=== PATIENT | female | born 1955 | race Asian ===

== ENCOUNTER 2016-08-07 05:26 | Inpatient (IN) | payer BC ==
[~2016-08-07] VITALS: Ht 144.8 cm; Wt 63.8 kg
[2016-08-07] MEDS ORDERED: HYDR25TA6 PO (05:38)
[2016-08-07] MEDS ORDERED: SIMV40TA3 PO (05:38)
[2016-08-07] MEDS ORDERED: PANTOPRAZOLE 80 MG in SODIUM CHLORIDE 0.9% 100 ML IV SCH ×2 (06:08→08:00)
[2016-08-07] MEDS ORDERED: PANTOPRAZOLE 80 MG in SODIUM CHLORIDE 0.9% 50 ML IVPB ONE (06:08)
[2016-08-07] MEDS ORDERED: PANTOPRAZOLE 40 MG IV IVPush ONE (06:30)
[2016-08-07] MEDS ORDERED: SODIUM CHLORIDE FLUSH 10ML SYR IVF ONE (06:30)
[2016-08-07] MEDS ORDERED: SODIUM CHLORIDE 0.9% 1,000ML IVBOLUS ONE (06:30)
[2016-08-07] MEDS ORDERED: ONDANSETRON 2MG/ML, 2ML IVPush ONE (06:30)
[2016-08-07] MEDS ORDERED: ONDANSETRON 2MG/ML, 2ML ONE (06:30)
[2016-08-07 07:04] LABS: BLOOD UREA NITROGEN 36 mg/dL (7-18)
[2016-08-07 07:09] LABS: ASPARTATE AMINO TRANSFERASE 26 U/L (15-37)
[2016-08-07] MEDS ORDERED: NS + 20MEQ KCL 1,000 ML IV SCH (07:55)
[2016-08-07] MEDS ORDERED: HYDROcodone/APAP 5/325 TABLET PO PRN (08:00)
[2016-08-07] MEDS ORDERED: ONDANSETRON 2MG/ML, 2ML IVPush PRN (08:00)
[2016-08-07] MEDS ORDERED: ACETAMINOPHEN 325 MG TABLET PO PRN (08:00)
[2016-08-07] MEDS ORDERED: MORPHINE SULFATE 4 MG/ML, 1ML IVPush PRN (08:00)
[2016-08-07] MEDS ORDERED: LABETALOL 5MG/ML 40ML VIAL IVPush PRN (08:00)
[2016-08-07] MEDS ORDERED: HYDROCHLOROTHIAZIDE 25 MG TABLET PO SCH (09:00)
[2016-08-07] MEDS ORDERED: SIMVASTATIN 40 MG TABLET PO SCH ×2 (09:30→21:00)
[2016-08-07 09:37] VITALS: BP 117/74
[2016-08-07] MEDS ORDERED: FENTANYL PF 100 MCG/2ML ONE (12:17)
[2016-08-07] MEDS ORDERED: MIDAZOLAM 1 MG/ML, 5ML ONE (12:17)
[2016-08-07] MEDS ORDERED: OMEP-110 PO (14:15)
[2016-08-07 14:31] VITALS: BP 120/73
== END 2016-08-07 16:45 | disposition home or self-care (01) | DRG 380 ==
LOC: ED 05:54 → EDIP 07:47 → 4WST 09:02 → DCLOUNGE 16:30
PROVIDERS: ADMIT Internal Medicine; ATTEND Internal Medicine
PROC: 0DJ08ZZ Inspection of Upper Intestinal Tract, Via Natural or Artificial Opening Endoscopic (ICD-10-PCS; principal; 2016-08-07 12:00)
DX: K22.11 Ulcer of esophagus with bleeding (principal); N17.0 Acute kidney failure with tubular necrosis; I11.9 Hypertensive heart disease without heart failure; E78.5 Hyperlipidemia, unspecified; Z80.8 Family history of malignant neoplasm of other organs or systems; T39.395A Adverse effect of other nonsteroidal anti-inflammatory drugs [NSAID], initial encounter; R73.9 Hyperglycemia, unspecified; K21.9 Gastro-esophageal reflux disease without esophagitis; Z90.710 Acquired absence of both cervix and uterus; Z90.49 Acquired absence of other specified parts of digestive tract
CPT/HCPCS: 36415; 74020; 80053; 83690; 85014; 85018; 85025; 85610; 85730; 86850; 86900; 93005; 96365; 96366; 96375; 99152; J2250; J2405; J3010; J3480; C9113; J7030